=== PATIENT | female | born 1990 | race Hispanic/Latino ===

== ENCOUNTER 2018-10-23 21:39 | Inpatient (IN) | payer OTHER ==
--- NOTE | 2018-10-23 22:00 | C.PDOC ---
History Of Present Illness 28 F w/ hx of gastritis p/w abdominal pain, diarrhea, nausea. Pt notes abdominal pain started at 0500 this morning as a cramp like pain to her suprapubic area. She notes x4 episodes of diarrhea, non dark, non bloody as well as nausea without any vomiting episodes. LMP 2 weeks prior, spotting. No abnl vaginal d/c otherwise or rash. No fall or trauma. Pt notes recent travel to [facility] where she had puffin and fish and notes that sometimes she has severe gastritis when it comes to certain foods. No fever, but she notes chills. No chest pain or shortness of breath. No back pain. No dysuria, urgency or frequency. She notes taking ibuprofen 200mg without much relief of her pain. No other complaints. Time Seen by Provider: 10/23/18 21:56 Chief Complaint (Nursing): Abdominal Pain Past Medical History Family History: States: Unknown Family Hx Review Of Systems Constitutional: Negative for: Fever, Chills, Sweats, Weakness, Malaise Eyes: Negative for: Pain, Vision Change, Eyelid Inflammation, Redness ENT: Negative for: Ear Pain, Ear Discharge, Nose Pain, Nose Congestion, Mouth Pain, Mouth Swelling Cardiovascular: Negative for: Chest Pain, Palpitations, Orthopnea Respiratory: Negative for: Cough, Shortness of Breath, Hemoptysis, SOB with Excertion, Pleuritic Pain, Sputum, Wheezing Gastrointestinal: Positive for: Nausea, Abdominal Pain, Diarrhea. Negative for: Vomiting, Constipation, Melena, Hematochezia, Hematemesis Genitourinary: Positive for: Vaginal Bleeding ("spotting"). Negative for: Dysuria, Frequency, Incontinence, Hematuria, Vaginal Discharge, Rash Musculoskeletal: Negative for: Neck Pain, Shoulder Pain, Arm Pain, Back Pain, Hand Pain Skin: Negative for: Rash, Lesions, Jaundice Neurological: Negative for: Weakness, Numbness, Altered Mental Status, Headache Psych: Negative for: Anxiety, Depression, Psychosis, Suicidal ideation Physical Exam - Physical Exam Appears: Well, Non-toxic, No Acute Distress Skin: Normal Color, Warm, Dry Head: Atraumatic, Normacephalic, No Swelling, No Abrasion Eye(s): bilateral: Normal Inspection, PERRL, EOMI Ear(s): Bilateral: Normal Nose: Normal Tongue: Normal Appearing Lips: Normal Appearing Throat: Normal, No Erythema, No Exudate, No Drooling, No Mass Neck: Normal, Normal ROM, Supple, Other (no meningeal signs) Cardiovascular: Rhythm Regular, No Friction Rub, No Murmur, No JVD Respiratory: Normal Breath Sounds, No Rales, No Rhonchi, No Stridor, No Wheezing Gastrointestinal/Abdominal: Soft, Tenderness (suprapubic, umbilical), No Mass, No Distention, No Guarding, No Rebound, No Hernia Back: Normal Inspection, No CVA Tenderness, No Vertebral Tenderness Extremity: Normal ROM, No Tenderness, No Pedal Edema Extremity: Bilateral: Atraumatic, Hips Non-Tender, No Pedal Edema, Normal Color And Temperature Neurological/Psych: Oriented x3, Normal Speech, Normal Cognition Gait: Steady ED Course And Treatment - Laboratory Results Result Diagrams: 10/23/18 22:19 10/23/18 22:19 Medical Decision Making Medical Decision Makin F w/ hx of gastritis p/w abdominal pain, diarrhea, nausea. Pt notes abdominal pain started at 0500 this morning as a cramp like pain to her suprapubic area. Pt notes to be belching on exam, with umbilical pain and suprapubic pain. POC negative. No flank pain or back pain. Spotting d/c, very mild and normal per pt to have abnormal periods while on OCPS. Given recent travel and exotic foods, with pt hx of gastritis likely gastroenteritis 2/2. Pending imaging and labs 1111 labs reviewed Pancreatitis on labs: RANSONS score: 0 CBC / CMP otherwise largely unremarkable no RUQ pain on repeat exam NPO and IV fluids pt notes improvement of pain paged Dr. Ce Perez for admission pt in NAD 11: Endorsed to Dr. Ce perez pending CT and TVUS studies: To admit to his service, he notes he will follow pending studies and is requesting antibiotic orders- CIPRO And Flagyl ordered. pt in NAD, continues to note improvement of pain agreeable to plan remains w/ out rebound tenderness or rlq pain or guarding Disposition - Disposition Disposition Time: 23:13 Condition: STABLE Forms: [employer] (Maltese) - Clinical Impression Clinical Impression: Pancreatitis
[2018-10-23] MEDS ORDERED: Sodium Chloride 0.9% 500 ML IV ONE (22:01)
[2018-10-23 22:22] LABS: BASO % 0.5 % (0.0-2.0); EOS # 0.1 K/uL (0.0-0.7); EOS % 1.4 % (0.0-4.0); HEMOGLOBIN 12.9 g/dL (11.0-16.0); LYMPH # 2.2 K/uL (1.0-4.3); LYMPH % 21.4 % (20.0-40.0); MEAN CELL VOLUME 92.1 fL (81.0-99.0); MEAN CORPUSCULAR HEMOGLOBIN 30.8 pg (27.0-31.0); MEAN CORPUSCULAR HGB CONC 33.5 g/dL (33.0-37.0); MEAN PLATELET VOLUME 10.1 fL (7.2-11.7); MONO # 0.8 K/uL (0.0-0.8); MONO % 7.3 % (0.0-10.0); NEUT # 7.3 K/uL (1.8-7.0); NEUT % 69.4 % (50.0-75.0); RBC 4.2 Mil/uL (3.80-5.20); RED CELL DISTRIBUTION WIDTH 12.2 % (11.5-14.5); WHITE BLOOD COUNT 10.5 K/uL (4.8-10.8)
[2018-10-23 22:34] LABS: ALB/GLOB RATIO 1.5 (1.0-2.1); ALBUMIN 3.9 g/dL (3.5-5.0); ALT/SGPT 21 U/L (9-52); AST/SGOT 26 U/L (14-36); BLOOD UREA NITROGEN 13 mg/dL (7-17); CALCIUM 9.1 mg/dl (8.6-10.4); GFR NON-AFRICAN AMERICAN > 60
[2018-10-23 22:53] LABS: LIPASE 2113 U/L (23-300)
[2018-10-23] MEDS ORDERED: Iodixanol 320 MG/ML 100 ML BOTTLE IV ONE (23:11)
[2018-10-23] MEDS ORDERED: Sodium Chloride 0.9% 1,000 ML IV SCH (23:15)
[2018-10-23] MEDS ORDERED: metroNIDAZOLE IV 500 mg/100 ml 500 MG/100 ML BAG IVPB STA (23:20)
[2018-10-23] MEDS ORDERED: Ciprofloxacin 400mg/200ml D5W 400 MG/200 ML BAG IVPB STA (23:20)
[2018-10-23] MEDS ORDERED: metroNIDAZOLE IV 500 mg/100 ml 500 MG/100 ML BAG ONE (23:37)
[2018-10-24] MEDS ORDERED: Sodium Chloride 0.9% 1,000 ML IV SCH (00:15)
[2018-10-24] MEDS ORDERED: Ciprofloxacin 400mg/200ml D5W 400 MG/200 ML BAG IVPB ONE (00:16)
[2018-10-24 01:22] VITALS: RESP 20
--- NOTE | 2018-10-24 07:44 | CT ---
Date of service: 10/23/2018 PROCEDURE: CT Abdomen and Pelvis with contrast HISTORY: umbilical / suprapubic pain, bloating, diarrhea COMPARISON: None available. TECHNIQUE: CT scan of the abdomen pelvis was performed after the administration of IV and oral contrast. Coronal and sagittal reconstructions were also acquired. . Contrast Dose: 100 cc Visipaque 320 IV contrast Radiation dose: Total exam DLP = 316.22 mGy-cm. FINDINGS: LOWER THORAX: Visualized portions of the lung bases are clear. LIVER: Subcentimeter hypodensity noted in the right lobe liver, too small to characterize. GALLBLADDER AND BILE DUCTS: Unremarkable. PANCREAS: Unremarkable. SPLEEN: Unremarkable. ADRENALS: Unremarkable. KIDNEYS AND URETERS: Unremarkable. No hydronephrosis. VASCULATURE: The aorta is normal in caliber. No aortic atherosclerotic calcification or mural plaque present. STOMACH AND BOWEL: There is no abnormal small or large bowel dilatation. There is diffuse wall thickening of the right colon with surrounding inflammatory changes. APPENDIX: Normal appendix. PERITONEUM: Small amount of pelvic free fluid, likely physiologic. LYMPH NODES: There is no significant abdominal or pelvic lymphadenopathy. BLADDER: Unremarkable. REPRODUCTIVE: Uterus is unremarkable by CT. BONES: No acute fracture identified. Degenerative changes noted of the bilateral femoral necks with subchondral cyst formation OTHER FINDINGS: None. IMPRESSION: Diffuse thickening of the right colon, consistent with a colitis of infectious/inflammatory etiology. Small amount of pelvic free fluid, likely physiologic. Additional findings as above. Preliminary impression was provided by the Teleradiology service. Findings are concordant.
[2018-10-24] MEDS: Lactated Ringer's 1,000 ML IV SCH ×3 (08:30→20:18)
--- NOTE | 2018-10-24 09:04 | US ---
Pelvic ultrasound HISTORY: Vaginal bleeding. COMPARISON: None available. Technique: Real-time sonography was performed through the pelvis utilizing transvaginal technique. Findings: Uterus: 7.4 x 3.6 x 4.4 centimeters. Homogeneous echotexture. Anteverted. Endometrium measures 6.3 millimeters, within normal limits. Trace free fluid in the pelvic cul-de-sac. Right ovary: 2.3 x 2.0 x 2.8 centimeters. Normal flow. Hypoechoic cysts/follicles measuring up to 8 and 7 millimeters. Left ovary: 2.6 x 1.3 x 2.2 centimeters. Normal flow. Hypoechoic cyst/follicle measuring up to 6 millimeters. Impression: Unremarkable sonographic evaluation of the pelvis. Trace free fluid in the pelvic cul-de-sac.
--- NOTE | 2018-10-24 09:28 | CP.PCM.PN ---
"Subjective - Date & Time of Evaluation Date of Evaluation: 10/24/18 Time of Evaluation: : - Subjective Subjective: 28 year old female with a past medical history of h.pylori, gastritis presents to the hospital after reporting abdominal pain that began yesterday. Patient states it was started as cramping sensation that was associated with multiple ep isodes of non-bloody diarrhea and nausea. Patient denies taking anything for relief of symptoms. Of note, patient recently traveled to [facility] for a friends wedding where she did consume foods that were different from her normal diet. These included [place], [place], [place], [place] and [place]. Patient states the symptoms became more severe after eating [place] meal. Patient denies any palpitations, chest pain, headaches, dizziness, changes in vision, syncopal episodes, or any other complaints. Medical history: gastritis, h. pylori Surgical history: Denies Social history: social etoh, neg tobacco, drugs Family history: neg for IBD Objective - Vital Signs/Intake and Output Vital Signs (last 24 hours): Temp Pulse Resp BP Pulse Ox 97.9 F 82 20 111/68 98 10/24/18 07:44 10/24/18 07:44 10/24/18 07:44 10/24/18 07:44 10/24/18 07:44 - Medications Medications: Current Medications Ciprofloxacin (Cipro 400mg/200ml Dsw) 400 mg in 200 mls @ 133 mls/hr IVPB Q12H [facility]; Protocol Metronidazole (Flagyl) 500 mg in 100 mls @ 100 mls/hr IVPB Q8H [facility]; Protocol Last Admin: 10/24/18 09:19 Dose: 100 mls/hr Lactated Ringer's (Lactated Ringer's) 1,000 mls @ 150 mls/hr IV .Q6H40M [facility] Last Admin: 10/24/18 08:30 Dose: 150 mls/hr Pantoprazole Sodium (Protonix Inj) 40 mg IVP DAILY [facility] Last Admin: 10/24/18 09:21 Dose: 40 mg - Labs Labs: 10/23/18 22:19 10/23/18 22:19 - Head Exam Head Exam: ATRAUMATIC, NORMAL INSPECTION - Eye Exam Eye Exam: EOMI, Normal appearance. absent: Nystagmus Pupil Exam: NORMAL ACCOMODATION - ENT Exam ENT Exam: Mucous Membranes Moist, Normal Exam. absent: Normal External Ear Exam - Neck Exam Neck Exam: Normal Inspection. absent: Tenderness - Respiratory Exam Respiratory Exam: Clear to Ausculation Bilateral, NORMAL BREATHING PATTERN - Cardiovascular Exam Cardiovascular Exam: REGULAR RHYTHM, +S1, +S2. absent: Tachycardia, +S4 - GI/Abdominal Exam GI & Abdominal Exam: Soft, Normal Bowel Sounds. absent: Diminished Bowel Sounds - Extremities Exam Extremities Exam: Normal Capillary Refill, Normal Inspection. absent: Pedal Edema - Back Exam Back Exam: NORMAL INSPECTION - Neurological Exam Neurological Exam: Awake, CN II-XII Intact, Normal Gait, Oriented x3 - Psychiatric Exam Psychiatric exam: Normal Affect, Normal Mood - Skin Skin Exam: Intact, Normal Color Assessment and Plan - Assessment and Plan (Free Text) Plan: Colitis Patient recently returned from [facility] and had [place], [place], [place], [place] and [place] -Abdomen/pelvis ct:diffuse thickening of the right colon, consistent with colitis of infectious/inflammatory etiology.small amount of pelvic free fluid. Likely physiologics -Giardia labs ordered. Will f/u with results -Stool, ova cultures ordered. Will f/u with results. -GI Dr. Rodriguez consulted--> Help appreciated Medications: Flagyl 500mg IVPB Q8 [facility] Ciprofloxacin 400mg IVPB Q12 [facility] (Hold) Suprapubic pain U/a :1+Blood |Trace Leukocyte esterase Urine cx ordered. Will f/u with results ppx -LR@150mls/hr -Heparin -Clear liquid diet. Dispo: Awaiting stool cultures. Clear liquid diet started and will advance as tolerated. Patient had a skin reaction with the Ciprofloxacin and it was held. Patient was given PO Benadyrl Plan discussed with Attending Dr. Millicent Apple. Mu Damian, PGY2"
--- NOTE | 2018-10-24 09:37 | CP.PCM.CON ---
<Elyssa Kaufman - Last Filed: 10/24/18 09:38> History of Present Illness - History of Present Illness History of Present Illness: GI Fellow PGY5 Consult Note This is a 28 F w/ hx of gastritis p/w abdominal pain and diarrhea. Pt notes abdominal pain started at 0500 yesterday morning as a cramp like pain to her suprapubic area. She notes x10 episodes of watery diarrhea, non bloody as well as nausea without any vomiting episodes. She recently traveled to [facility] where she had food out of normal diet puffin and fish and notes that sometimes she has severe gastritis when it comes to certain foods. EGD years ago with erosive gastritis. No fever, but she notes chills. No chest pain or shortness of breath. No back pain. No dysuria, urgency or frequency. She notes taking ibuprofen 200mg without much relief of her pain. She reports pain is better this am with 2BM overnight and nothing this am. She also reports drinking etoh in excess during the weekend. ROS: A 12pt ROS was negative except as above PmHx: As state din HPI Pshx: Denies SH: social etoh, neg tobacco, drugs FH: neg for IBD Past Patient History - Past Social History Smoking Status: Never Smoked - GASTROINTESTINAL Hx Ulcer: Yes - PSYCHIATRIC Hx Substance Use: No - SURGICAL HISTORY Other/Comment: dental surgery Meds Allergies/Adverse Reactions: Allergies Allergy/AdvReac Type Severity Reaction Status Date / Time latex Allergy Verified 10/23/18 21:51 - Medications Medications: Current Medications Ciprofloxacin (Cipro 400mg/200ml Dsw) 400 mg in 200 mls @ 133 mls/hr IVPB Q12H [facility]; Protocol Metronidazole (Flagyl) 500 mg in 100 mls @ 100 mls/hr IVPB Q8H [facility]; Protocol Last Admin: 10/24/18 09:19 Dose: 100 mls/hr Lactated Ringer's (Lactated Ringer's) 1,000 mls @ 150 mls/hr IV .Q6H40M [facility] Last Admin: 10/24/18 08:30 Dose: 150 mls/hr Pantoprazole Sodium (Protonix Inj) 40 mg IVP DAILY [facility] Last Admin: 10/24/18 09:21 Dose: 40 mg Physical Exam - Constitutional Appears: Non-toxic, No Acute Distress - Head Exam Head Exam: ATRAUMATIC, NORMAL INSPECTION, NORMOCEPHALIC - Eye Exam Eye Exam: EOMI, Normal appearance, PERRL Pupil Exam: PERRL - ENT Exam ENT Exam: Mucous Membranes Moist, Normal Exam - Neck Exam Neck exam: Positive for: Normal Inspection - Respiratory Exam Respiratory Exam: Clear to Auscultation Bilateral, NORMAL BREATHING PATTERN - Cardiovascular Exam Cardiovascular Exam: REGULAR RHYTHM, RRR, +S1, +S2 - GI/Abdominal Exam GI & Abdominal Exam: Normal Bowel Sounds, Soft, Tenderness. absent: Distended, Firm, Guarding, Organomegaly - Rectal Exam Rectal Exam: NORMAL INSPECTION - Exam Exam: NORMAL INSPECTION - Extremities Exam Extremities exam: Positive for: full ROM, normal inspection - Back Exam Back exam: NORMAL INSPECTION - Neurological Exam Neurological exam: Alert, Oriented x3 - Psychiatric Exam Psychiatric exam: Anxious, Normal Affect, Normal Mood - Skin Skin Exam: Dry, Intact, Normal Color, Warm Results - Vital Signs Recent Vital Signs: Last Vital Signs Temp 97.9 F 10/24/18 07:44 Pulse 82 10/24/18 07:44 Resp 20 10/24/18 07:44 BP 111/68 10/24/18 07:44 Pulse Ox 98 10/24/18 07:44 - Labs Result Diagrams: 10/23/18 22:19 10/23/18 22:19 Labs: Laboratory Results - last 24 hr 10/23/18 10/23/18 22:19 22:19 WBC 10.5 RBC 4.20 Hgb 12.9 Hct 38.7 MCV 92.1 MCH 30.8 MCHC 33.5 RDW 12.2 Plt Count 196 MPV 10.1 Neut % (Auto) 69.4 Lymph % (Auto) 21.4 [place] % (Auto) 7.3 Eos % (Auto) 1.4 Baso % (Auto) 0.5 Neut # (Auto) 7.3 H Lymph # (Auto) 2.2 [place] # (Auto) 0.8 Eos # (Auto) 0.1 Baso # (Auto) 0.0 Sodium 137 Potassium 3.8 Chloride 104 Carbon Dioxide 23 Anion Gap 13 BUN 13 Creatinine 0.8 Est GFR ( Amer) > 60 Est GFR (Non-Af Amer) > 60 Random Glucose 109 H Calcium 9.1 Total Bilirubin 0.2 AST 26 ALT 21 Alkaline Phosphatase 87 Total Protein 6.6 Albumin 3.9 Globulin 2.7 Albumin/Globulin Ratio 1.5 Lipase 2113 H Assessment & Plan - Assessment and Plan (Free Text) Assessment: 1. Colitis-infectious 2. Abdominal pain 3. N/Diarrhea Plan: Continue supportive care with pain control, antiemetic IVF Clear liquid diet IV Cipro/Flagyl for colitis in cecum and ascending colon Stool infectious workup UA and culture to r/o UTI with cystitis on CT and suprapubic pain Lipase is non specific does not meet criteria for acute pancreatitis Will continue to monitor clinical course <Jaun Rodriguez - Last Filed: 10/24/18 11:36> Meds - Medications Medications: Current Medications Ciprofloxacin (Cipro 400mg/200ml Dsw) 400 mg in 200 mls @ 133 mls/hr IVPB Q12H [facility]; Protocol Metronidazole (Flagyl) 500 mg in 100 mls @ 100 mls/hr IVPB Q8H [facility]; Protocol Last Admin: 10/24/18 09:19 Dose: 100 mls/hr Lactated Ringer's (Lactated Ringer's) 1,000 mls @ 150 mls/hr IV .Q6H40M [facility] Last Admin: 10/24/18 08:30 Dose: 150 mls/hr Pantoprazole Sodium (Protonix Inj) 40 mg IVP DAILY [facility] Last Admin: 10/24/18 09:21 Dose: 40 mg Results - Vital Signs Recent Vital Signs: Last Vital Signs Temp 97.9 F 10/24/18 07:44 Pulse 82 10/24/18 07:44 Resp 20 10/24/18 07:44 BP 111/68 10/24/18 07:44 Pulse Ox 98 10/24/18 07:44 - Labs Result Diagrams: 10/23/18 22:19 10/23/18 22:19 Labs: Laboratory Results - last 24 hr 10/23/18 10/23/18 22:19 22:19 WBC 10.5 RBC 4.20 Hgb 12.9 Hct 38.7 MCV 92.1 MCH 30.8 MCHC 33.5 RDW 12.2 Plt Count 196 MPV 10.1 Neut % (Auto) 69.4 Lymph % (Auto) 21.4 [place] % (Auto) 7.3 Eos % (Auto) 1.4 Baso % (Auto) 0.5 Neut # (Auto) 7.3 H Lymph # (Auto) 2.2 [place] # (Auto) 0.8 Eos # (Auto) 0.1 Baso # (Auto) 0.0 Sodium 137 Potassium 3.8 Chloride 104 Carbon Dioxide 23 Anion Gap 13 BUN 13 Creatinine 0.8 Est GFR ( Amer) > 60 Est GFR (Non-Af Amer) > 60 Random Glucose 109 H Calcium 9.1 Total Bilirubin 0.2 AST 26 ALT 21 Alkaline Phosphatase 87 Total Protein 6.6 Albumin 3.9 Globulin 2.7 Albumin/Globulin Ratio 1.5 Lipase 2113 H Attending/Attestation - Attestation I have personally seen and examined this patient.: Yes I have fully participated in the care of the patient.: Yes I have reviewed all pertinent clinical information: Yes Notes (Text): 10/24/18 11:28 I have seen and examined patient with GI fellow. Agree with above documentation with the following additions. In brief, this is a 28 year old female without significant medical history who presents to hospital with complaint of sudden on set abdominal pain and diarrhea which began yesterday. Prior to this she was in usual state of health, though recently returned from trip to [facility] where she consumed many dishes with atypical seafood items. She reports crampy supra- pubic abdominal pain, 4/10 intensity with multiple non-bloody bowel movements yesterday and two episodes overnight. She denies nausea, vomiting, fever/chills, weight loss, skin rash, joint pain, oral ulcers, sick contacts, antibiotic use, or similar prior episodes. She does also admit to drinking ETOH in excess during her trip. She had an EGD several years ago which showed gastric erosions as per patient, no prior colonoscopy. Abdominal pain, diarrhea - acute colitis, presumed infectious given clinical scenario - Continue with antibiotic therapy - Obtain stool studies - Continue with IVF hydration, supportive care - Obtain UA given suprapubic pain - Patient would benefit from colonoscopy 6-8 weeks following resolution of acute symptoms, will continue to monitor patient clinical course
[2018-10-24] MEDS ORDERED: metroNIDAZOLE IV 500 mg/100 ml 500 MG/100 ML BAG IVPB SCH (10:00)
[2018-10-24] MEDS ORDERED: Ciprofloxacin 400mg/200ml D5W 400 MG/200 ML BAG IVPB SCH (11:00)
[2018-10-24 12:18] LABS: BLOOD UREA NITROGEN 5 mg/dL (7-17); CALCIUM 8.4 mg/dl (8.6-10.4); GFR NON-AFRICAN AMERICAN > 60; LIPASE 64 U/L (23-300)
--- NOTE | 2018-10-24 12:27 | CP.PCM.HP ---
History of Present Illness - History of Present Illness History of Present Illness: 28 year old female with a past medical history of h.pylori, gastritis presents to the hospital after reporting abdominal pain that began yesterday. Patient states it was started as cramping sensation that was associated with multiple episodes of non-bloody diarrhea and nausea. Patient denies taking anything for relief of symptoms. Of note, patient recently traveled to [facility] for a friends wedding where she did consume foods that were different from her normal diet. These included [place], [place], [place], [place] and [place]. Patient states the symptoms became more severe after eating [place] meal. Patient denies any palpitations, chest pain, headaches, dizziness, changes in vision, syncopal episodes, or any other complaints. Medical history: gastritis, h. pylori Surgical history: Denies Social history: social etoh, neg tobacco, drugs Family history: neg for IBD Present on Admission - Present on Admission Any Indicators Present on Admission: No Past Patient History - Past Social History Smoking Status: Never Smoked - GASTROINTESTINAL Hx Ulcer: Yes - PSYCHIATRIC Hx Substance Use: No - SURGICAL HISTORY Other/Comment: dental surgery Meds Allergies/Adverse Reactions: Allergies Allergy/AdvReac Type Severity Reaction Status Date / Time ciprofloxacin Allergy RASH Verified 10/24/18 19:05 latex Allergy RASH Verified 10/24/18 19:05 Physical Exam - Constitutional Appears: Well - Head Exam Head Exam: ATRAUMATIC, NORMAL INSPECTION, NORMOCEPHALIC - Eye Exam Eye Exam: EOMI, Normal appearance, PERRL Pupil Exam: NORMAL ACCOMODATION, PERRL - ENT Exam ENT Exam: Mucous Membranes Moist, Normal Exam - Neck Exam Neck exam: Positive for: Normal Inspection - Respiratory Exam Respiratory Exam: Decreased Breath Sounds - Cardiovascular Exam Cardiovascular Exam: REGULAR RHYTHM, +S1, +S2 - GI/Abdominal Exam GI & Abdominal Exam: Diminished Bowel Sounds, Soft - Rectal Exam Rectal Exam: Deferred - Neurological Exam Neurological exam: Oriented x3 Results - Vital Signs Recent Vital Signs: Last Vital Signs Temp 97.9 F 10/24/18 07:44 Pulse 82 10/24/18 07:44 Resp 20 10/24/18 07:44 BP 111/68 10/24/18 07:44 Pulse Ox 98 10/24/18 07:44 - Labs Result Diagrams: 10/23/18 22:19 10/24/18 11:38 Labs: Laboratory Results - last 24 hr 10/23/18 10/23/18 10/24/18 22:19 22:19 11:38 WBC 10.5 RBC 4.20 Hgb 12.9 Hct 38.7 MCV 92.1 MCH 30.8 MCHC 33.5 RDW 12.2 Plt Count 196 MPV 10.1 Neut % (Auto) 69.4 Lymph % (Auto) 21.4 [place] % (Auto) 7.3 Eos % (Auto) 1.4 Baso % (Auto) 0.5 Neut # (Auto) 7.3 H Lymph # (Auto) 2.2 [place] # (Auto) 0.8 Eos # (Auto) 0.1 Baso # (Auto) 0.0 Sodium 137 136 Potassium 3.8 3.4 L Chloride 104 107 Carbon Dioxide 23 23 Anion Gap 13 10 BUN 13 5 L Creatinine 0.8 0.6 L Est GFR ( Amer) > 60 > 60 Est GFR (Non-Af Amer) > 60 > 60 Random Glucose 109 H 93 Calcium 9.1 8.4 L Total Bilirubin 0.2 AST 26 ALT 21 Alkaline Phosphatase 87 Total Protein 6.6 Albumin 3.9 Globulin 2.7 Albumin/Globulin Ratio 1.5 Lipase 2113 H 64
[2018-10-24 13:57] LABS: C DIFF TOXIN A B NEGATIVE (NEGATIVE)
[2018-10-24 14:59] LABS: SQUAMOUS EPITHIAL < 1 /hpf (0-5); URINE BILIRUBIN NEGATIVE (NEGATIVE); URINE BLOOD 1+ (NEGATIVE); URINE CLARITY Clear (Clear); URINE COLOR Yellow (YELLOW); URINE GLUCOSE (UA) NORMAL (Normal); URINE LEUKOCYTE ESTERASE TRACE Leu/uL (Negative); URINE PROTEIN NEGATIVE (NEGATIVE); URINE UROBILINOGEN NORMAL mg/dL (0.2-1.0)
[2018-10-24] MEDS ORDERED: Potassium Chloride 20 mEq/15 ml LIQ UD PO ONE (15:31)
[2018-10-24 16:39] LABS: FECAL LEUKOCYTES POSITIVE (NEGATIVE)
--- NOTE | 2018-10-24 19:06 | CP.PCM.PCO ---
<Karl Rivera - Last Filed: 10/24/18 19:06> Physician Communication Note - Physician Communication Note Physician Communication Note: Called to see pt for AMA. <Radha Apple - Last Filed: 10/24/18 20:17> Physician Communication Note - Physician Communication Note Physician Communication Note: Called to see pt for AMA. discuss with pt and mother at length n morning ro
[2018-10-24] MEDS: Piperacill/Tazo 3.375gm in Dex 3.375 GM/50 ML BAG IVPB SCH (20:11)
[2018-10-25] MEDS: Lactated Ringer's 1,000 ML IV SCH ×2 (03:39→10:09)
[2018-10-25] MEDS: Piperacill/Tazo 3.375gm in Dex 3.375 GM/50 ML BAG IVPB SCH ×2 (03:40→13:00)
[2018-10-25] MEDS ORDERED: Potassium Chloride 20 mEq ER Tab PO STA (07:06)
--- NOTE | 2018-10-25 07:34 | CP.PCM.PN ---
"Subjective - Date & Time of Evaluation Date of Evaluation: 10/25/18 Time of Evaluation: 08:00 - Subjective Subjective: Medicine Progress Note for Dr. Ce Apple's Service: Patient was seen and examined at bedside in the AM. She states she had a small bowel movement this morning and she is passing gas. She states she did start eating solid food for breakfast but felt nauseated and had to stop. Patient denies fever, chills, vomiting or diarrhea. Objective - Vital Signs/Intake and Output Vital Signs (last 24 hours): Temp Pulse Resp BP Pulse Ox 98.3 F 85 20 116/71 98 10/25/18 00:00 10/25/18 00:00 10/25/18 00:00 10/25/18 00:00 10/25/18 00:00 Intake and Output: 10/25/18 10/25/18 06:59 18:59 Intake Total 3040 Balance 3040 - Medications Medications: Current Medications Lactated Ringer's (Lactated Ringer's) 1,000 mls @ 150 mls/hr IV .Q6H40M [facility] Last Admin: 10/25/18 03:39 Dose: 150 mls/hr Piperacillin Sod/Tazobactam Sod (Zosyn 3.375 Gm Iv Premix) 3.375 gm in 50 mls @ 100 mls/hr IVPB Q8H [facility]; Protocol Last Admin: 10/25/18 03:40 Dose: 100 mls/hr Ketorolac Tromethamine (Toradol) 15 mg IVP Q8H PRN PRN Reason: Pain, severe (8-10) Last Admin: 10/25/18 00:48 Dose: 15 mg Pantoprazole Sodium (Protonix Inj) 40 mg IVP DAILY [facility] Last Admin: 10/24/18 09:21 Dose: 40 mg - Labs Labs: 10/23/18 22:19 10/24/18 11:38 - Constitutional Appears: No Acute Distress - Head Exam Head Exam: ATRAUMATIC, NORMAL INSPECTION - Eye Exam Eye Exam: EOMI, Normal appearance - ENT Exam ENT Exam: Mucous Membranes Moist - Respiratory Exam Respiratory Exam: Clear to Ausculation Bilateral, NORMAL BREATHING PATTERN - Cardiovascular Exam Cardiovascular Exam: REGULAR RHYTHM, +S1, +S2 - GI/Abdominal Exam GI & Abdominal Exam: Soft, Tenderness (diffuse mild tenderness ), Normal Bowel Sounds - Extremities Exam Extremities Exam: Normal Inspection - Neurological Exam Neurological Exam: Alert, Awake, Oriented x3 - Psychiatric Exam Psychiatric exam: Normal Affect - Skin Skin Exam: Normal Color Assessment and Plan - Assessment and Plan (Free Text) Assessment: Colitis - Patient recently returned from [facility] and had [place], [place], [place], [place] - Imaging: * Abdomen/pelvis CT:diffuse thickening of the right colon, consistent with colitis of infectious/inflammatory etiology.small amount of pelvic free fluid. Likely physiologics - f/u Giardia labs - Stool Leukocytes + - C diff negative - GI Consult: Dr. Rodriguez --> Help appreciated Medications: * Patient was started on Ciprofloxacin 10/24/18 but had an allergic skin reaction which was then stopped * Zosyn 3.375 IV q8h stop date 10/25/18 * Zofran 4mg IV q8h * Toradol 15mg IV q8h prn for pain Suprapubic pain - secondary to colitis - U/A: 1+Blood |Trace Leukocyte esterase - f/u Urine Culture - Transvaginal US: Unremarkable sonographic evaluation of the pelvis. Trace free fluid in the pelvic cul-de-sac. Prophylaxis - SCDs; patient is ambulatory - Protonix 40mg IV daily - Florastor 250mg po daily - Altered GI/Hepatic Diet Disposition: Patient discharge home. Patient to be discharged with Augmentin 875mg every 8 hours po for 10 days. Patient to follow up with Dr. Rodriguez in 4 weeks in the office. Plan discussed with Attending Dr. Millicent Castle PGY-2"
[2018-10-25 07:38] LABS: BASO % 0.4 % (0.0-2.0); EOS # 0.1 K/uL (0.0-0.7); EOS % 0.9 % (0.0-4.0); HEMOGLOBIN 11.6 g/dL (11.0-16.0); LYMPH # 2.1 K/uL (1.0-4.3); LYMPH % 21.1 % (20.0-40.0); MEAN CELL VOLUME 90.2 fL (81.0-99.0); MEAN CORPUSCULAR HEMOGLOBIN 30.8 pg (27.0-31.0); MEAN CORPUSCULAR HGB CONC 34.2 g/dL (33.0-37.0); MEAN PLATELET VOLUME 9.9 fL (7.2-11.7); MONO # 0.8 K/uL (0.0-0.8); MONO % 8.3 % (0.0-10.0); NEUT # 6.8 K/uL (1.8-7.0); NEUT % 69.3 % (50.0-75.0); RBC 3.77 Mil/uL (3.80-5.20); RED CELL DISTRIBUTION WIDTH 12.2 % (11.5-14.5); WHITE BLOOD COUNT 9.8 K/uL (4.8-10.8)
[2018-10-25 07:57] LABS: ALB/GLOB RATIO 1.6 (1.0-2.1); ALBUMIN 3.5 g/dL (3.5-5.0); ALT/SGPT 24 U/L (9-52); AST/SGOT 24 U/L (14-36); BLOOD UREA NITROGEN 5 mg/dL (7-17); CALCIUM 8.3 mg/dl (8.6-10.4); GFR NON-AFRICAN AMERICAN > 60; LIPASE 44 U/L (23-300)
--- NOTE | 2018-10-25 08:00 | CP.PCM.PN ---
<Elyssa Kaufman - Last Filed: 10/25/18 07:57> Subjective - Date & Time of Evaluation Date of Evaluation: 10/25/18 Time of Evaluation: 07:00 - Subjective Subjective: GI Fellow PGY5 Progress Note Pt seen and evaluated at bedside, pt is better this am, only 1 BM this am, no N/V. ROS: A 12pt ROS was negative except as above. Objective - Vital Signs/Intake and Output Vital Signs (last 24 hours): Temp Pulse Resp BP Pulse Ox 98.3 F 71 20 114/72 100 10/25/18 07:41 10/25/18 07:41 10/25/18 07:41 10/25/18 07:41 10/25/18 07:41 Intake and Output: 10/25/18 10/25/18 06:59 18:59 Intake Total 3040 Balance 3040 - Medications Medications: Current Medications Lactated Ringer's (Lactated Ringer's) 1,000 mls @ 150 mls/hr IV .Q6H40M [facility] Last Admin: 10/25/18 03:39 Dose: 150 mls/hr Piperacillin Sod/Tazobactam Sod (Zosyn 3.375 Gm Iv Premix) 3.375 gm in 50 mls @ 100 mls/hr IVPB Q8H [facility]; Protocol Last Admin: 10/25/18 03:40 Dose: 100 mls/hr Ketorolac Tromethamine (Toradol) 15 mg IVP Q8H PRN PRN Reason: Pain, severe (8-10) Last Admin: 10/25/18 00:48 Dose: 15 mg Pantoprazole Sodium (Protonix Inj) 40 mg IVP DAILY [facility] Last Admin: 10/24/18 09:21 Dose: 40 mg - Labs Labs: 10/25/18 07:28 10/25/18 07:28 - Constitutional Appears: Non-toxic, No Acute Distress - Head Exam Head Exam: ATRAUMATIC, NORMAL INSPECTION, NORMOCEPHALIC - Eye Exam Eye Exam: EOMI, Normal appearance Pupil Exam: PERRL - ENT Exam ENT Exam: Mucous Membranes Moist, Normal Exam - Neck Exam Neck Exam: Normal Inspection - Respiratory Exam Respiratory Exam: Clear to Ausculation Bilateral, NORMAL BREATHING PATTERN - Cardiovascular Exam Cardiovascular Exam: REGULAR RHYTHM, RRR, +S1, +S2 - GI/Abdominal Exam GI & Abdominal Exam: Soft, Normal Bowel Sounds. absent: Distended, Tenderness - Extremities Exam Extremities Exam: Full ROM, Normal Inspection - Back Exam Back Exam: NORMAL INSPECTION - Neurological Exam Neurological Exam: Alert, Awake, Oriented x3 - Psychiatric Exam Psychiatric exam: Anxious, Normal Affect, Normal Mood Assessment and Plan - Assessment and Plan (Free Text) Assessment: 1. Colitis-infectious 2. Abdominal pain 3. N/Diarrhea Plan: Continue supportive care with pain control, antiemetic IVF Advance to regular diet this am IV Zosyn for colitis in cecum and ascending colon as reaction to cipro rash Stool infectious workup pending, cdiff neg, stool wbc + Lipase is non specific does not meet criteria for acute pancreatitis If pt tolerates breakfast and lunch can be discharged home on po abx Followup with GI as an outpt <Jaun Rodriguez - Last Filed: 10/25/18 13:39> Objective - Vital Signs/Intake and Output Vital Signs (last 24 hours): Temp Pulse Resp BP Pulse Ox 98.3 F 71 20 114/72 100 10/25/18 07:41 10/25/18 07:41 10/25/18 07:41 10/25/18 07:41 10/25/18 07:41 Intake and Output: 10/25/18 10/25/18 06:59 18:59 Intake Total 3040 Balance 3040 - Medications Medications: Current Medications Piperacillin Sod/Tazobactam Sod (Zosyn 3.375 Gm Iv Premix) 3.375 gm in 50 mls @ 100 mls/hr IVPB Q8H [facility]; Protocol Last Admin: 10/25/18 13:00 Dose: 100 mls/hr Ketorolac Tromethamine (Toradol) 15 mg IVP Q8H PRN PRN Reason: Pain, severe (8-10) Last Admin: 10/25/18 10:08 Dose: 15 mg Ondansetron HCl (Zofran Inj) 4 mg IVP Q8H [facility] Last Admin: 10/25/18 08:32 Dose: 4 mg Saccharomyces Boulardii (Florastor) 250 mg PO DAILY [facility] Last Admin: 10/25/18 10:01 Dose: 250 mg - Labs Labs: 10/25/18 07:28 10/25/18 07:28 Attending/Attestation - Attestation I have personally seen and examined this patient.: Yes I have fully participated in the care of the patient.: Yes I have reviewed all pertinent clinical information, including history, physical exam and plan: Yes Notes (Text): 10/25/18 13:36 I have seen and examined patient with GI fellow. No acute events overnight, she is seen resting in bed comfortably. She denies abdominal pain, nausea, vomiting, fever/chills. Tolerating PO diet without difficulty. Abdominal pain, diarrhea - resolving colitis - Advance diet as tolerated - Continue with antibiotic therapy to complete 7 day course - Follow up stool study results - Patient would benefit from outpatient colonoscopy 6-8 weeks following resolution of acute symptoms. Office contact information provided to patient, no further planned GI intervention, will sign off case. Please reconsult as necessary, thank you.
[2018-10-25] MEDS ORDERED: Saccharomyces Boulardi 250 mg Cap PO SCH (10:00)
--- NOTE | 2018-10-25 11:59 | CP.PCM.DIS ---
"Provider - Provider Date of Admission: 10/24/18 00:07 Attending physician: Viridiana Apple MD Consults: 10/24/18 00:09 Gastroenterology Consult Routine Comment: Consulting Provider: Jaun Rodriguez Consulting Physician: Jaun Rodriguez Reason for Consult: Pancreatitis Time Spent in preparation of Discharge (in minutes): 30 Hospital Course - Lab Results Lab Results: Micro Results 10/24/18 14:25 Urine,Kidney Urine Culture - Final No Growth (<1,000 CFU/ML) Most Recent Lab Values WBC 9.8 K/uL (4.8-10.8) 10/25/18 07:28 RBC 3.77 Mil/uL (3.80-5.20) L 10/25/18 07:28 Hgb 11.6 g/dL (11.0-16.0) 10/25/18 07:28 Hct 34.0 % (34.0-47.0) 10/25/18 07:28 MCV 90.2 fL (81.0-99.0) 10/25/18 07:28 MCH 30.8 pg (27.0-31.0) 10/25/18 07:28 MCHC 34.2 g/dL (33.0-37.0) 10/25/18 07:28 RDW 12.2 % (11.5-14.5) 10/25/18 07:28 Plt Count 184 K/uL (130-400) 10/25/18 07:28 MPV 9.9 fL (7.2-11.7) 10/25/18 07:28 Neut % (Auto) 69.3 % (50.0-75.0) 10/25/18 07:28 Lymph % (Auto) 21.1 % (20.0-40.0) 10/25/18 07:28 [place] % (Auto) 8.3 % (0.0-10.0) 10/25/18 07:28 Eos % (Auto) 0.9 % (0.0-4.0) 10/25/18 07:28 Baso % (Auto) 0.4 % (0.0-2.0) 10/25/18 07:28 Neut # (Auto) 6.8 K/uL (1.8-7.0) 10/25/18 07:28 Lymph # (Auto) 2.1 K/uL (1.0-4.3) 10/25/18 07:28 [place] # (Auto) 0.8 K/uL (0.0-0.8) 10/25/18 07:28 Eos # (Auto) 0.1 K/uL (0.0-0.7) 10/25/18 07:28 Baso # (Auto) 0.0 K/uL (0.0-0.2) 10/25/18 07:28 Sodium 139 mmol/L (132-148) 10/25/18 07:28 Potassium 3.7 mmol/L (3.6-5.2) 10/25/18 07:28 Chloride 106 mmol/L (98-107) 10/25/18 07:28 Carbon Dioxide 25 mmol/L (22-30) 10/25/18 07:28 Anion Gap 12 (10-20) 10/25/18 07:28 BUN 5 mg/dL (7-17) L 10/25/18 07:28 Creatinine 0.7 mg/dL (0.7-1.2) 10/25/18 07:28 Est GFR ( Amer) > 60 10/25/18 07:28 Est GFR (Non-Af Amer) > 60 10/25/18 07:28 Random Glucose 96 mg/dL (65-105) 10/25/18 07:28 Calcium 8.3 mg/dl (8.6-10.4) L 10/25/18 07:28 Total Bilirubin 0.5 mg/dL (0.2-1.3) 10/25/18 07:28 AST 24 U/L (14-36) 10/25/18 07:28 ALT 24 U/L (9-52) 10/25/18 07:28 Alkaline Phosphatase 67 U/L (38-126) 10/25/18 07:28 Total Protein 5.6 g/dL (6.3-8.3) L 10/25/18 07:28 Albumin 3.5 g/dL (3.5-5.0) 10/25/18 07:28 Globulin 2.2 gm/dL (2.2-3.9) 10/25/18 07:28 Albumin/Globulin Ratio 1.6 (1.0-2.1) 10/25/18 07:28 Lipase 44 U/L (23-300) 10/25/18 07:28 Urine Color Yellow (YELLOW) 10/24/18 14:25 Urine Clarity Clear (Clear) 10/24/18 14:25 Urine pH 5.0 (5.0-8.0) 10/24/18 14:25 Ur Specific [place] 1.025 (1.003-1.030) 10/24/18 14:25 Urine Protein Negative mg/dL (NEGATIVE) 10/24/18 14:25 Urine Glucose (UA) Normal mg/dL (Normal) 10/24/18 14:25 Urine Ketones 1+ mg/dL (NEGATIVE) H 10/24/18 14:25 Urine Blood 1+ (NEGATIVE) H 10/24/18 14:25 Urine Nitrate Negative (NEGATIVE) 10/24/18 14:25 Urine Bilirubin Negative (NEGATIVE) 10/24/18 14:25 Urine Urobilinogen Normal mg/dL (0.2-1.0) 10/24/18 14:25 Ur Leukocyte Esterase Trace [place]varo/uL (Negative) 10/24/18 14:25 Urine WBC (Auto) < 1 /hpf (0-5) 10/24/18 14:25 Urine RBC (Auto) 3 /hpf (0-3) 10/24/18 14:25 Ur Squamous Epith Cells < 1 /hpf (0-5) 10/24/18 14:25 Stool Leukocytes, Qual Positive (NEGATIVE) H 10/24/18 12:48 C. difficile Ag & Toxin Negative (NEGATIVE) 10/24/18 12:48 - Hospital Course Hospital Course: Colitis - Patient recently returned from [facility] and had [place], [place], [place], [place] and [place] - Imaging: * Abdomen/pelvis CT:diffuse thickening of the right colon, consistent with colitis of infectious/inflammatory etiology.small amount of pelvic free fluid. Likely physiologics - f/u Giardia labs - Stool Leukocytes + - C diff negative - GI Consult: Dr. Rodriguez --> Help appreciated Medications: * Patient was started on Ciprofloxacin 10/24/18 but had an allergic skin reaction which was then stopped * Zosyn 3.375 IV q8h * Zofran 4mg IV q8h * LR @150cc/hr * Toradol 15mg IV q8h prn for pain Suprapubic pain - secondary to colitis - U/A: 1+Blood |Trace Leukocyte esterase - f/u Urine Culture - Transvaginal US: Unremarkable sonographic evaluation of the pelvis. Trace free fluid in the pelvic cul-de-sac. Prophylaxis - SCDs; patient is ambulatory - Protonix 40mg IV daily - Florastor 250mg po daily - Altered GI/Hepatic Diet Disposition: If patient tolerates solid food for lunch will discharge patient home. Patient to be discharged with Augmentin 875mg every 8 hours po for 10 days. Patient to follow up with Dr. Rodriguez in 4 weeks in the office. Discharge Exam - Head Exam Head Exam: ATRAUMATIC, NORMAL INSPECTION Discharge Plan - Follow Up Plan Condition: STABLE Disposition: HOME/ ROUTINE"
[2018-10-25 16:56] VITALS: BP 110/68; PULSE 64; TEMP 98.5; O2SAT 99
[2018-10-26] MEDS ORDERED: Pneumococcal 23-Valent Vaccine IM ONE (10:00)
== END 2018-10-25 17:10 | disposition home or self-care (01) | DRG 392 ==
LOC: C.ER 21:39 → C.3T 10-24 00:07
PROVIDERS: ADMIT Internal Medicine Nephrology; ATTEND Internal Medicine Nephrology
DX: A09 Infectious gastroenteritis and colitis, unspecified (principal); K29.70 Gastritis, unspecified, without bleeding